=== PATIENT | female | born 1985 | race Caucasian/White ===

== ENCOUNTER 2017-01-29 02:06 | Emergency (ER) | payer OTHER ==
[2017-01-29 02:53] LABS: BASOPHIL % 0.4 % (0-2); PLATELET COUNT 360 x10^3mcL (130-400); RED CELL DISTRIBUTION WIDTH 13.4 % (11.5-14.5)
[2017-01-29 03:03] LABS: CARBON DIOXIDE 25.9 mmol/L (21-32); CHLORIDE SERUM 106 mmol/L (98-107); CREATININE SERUM 0.8 mg/dL (0.6-1.0); GFR1 > 60 mL/min; GLUCOSE SERUM 110 mg/dL (74-106); SODIUM SERUM 141 mmol/L (136-145)
[2017-01-29 03:07] LABS: ALBUMIN 3.6 g/dL (3.4-5.0); ALKALINE PHOSPHATASE 70 U/L (46-116); ALT/SGPT 52 U/L (14-59); AMYLASE 58 U/L (25-115); AST/SGOT 29 U/L (15-37); BILIRUBIN TOTAL 0.19 mg/dL (0.20-1.00); LIPASE 137 IU/L (73-393); TOTAL PROTEIN, SERUM 7.5 g/dL (6.4-8.2)
[2017-01-29 05:24] VITALS: BP 133/62
== END 2017-01-29 05:24 | disposition home or self-care (01) ==
LOC: ED 02:06
PROVIDERS: Emergency Medicine
DX: A08.4 Viral intestinal infection, unspecified (principal); Z87.442 Personal history of urinary calculi; G43.909 Migraine, unspecified, not intractable, without status migrainosus; K80.50 Calculus of bile duct without cholangitis or cholecystitis without obstruction
CPT/HCPCS: 83880; C9113; J2405; J2765; J7030

== ENCOUNTER 2017-04-04 23:05 | Inpatient (IN) | payer OTHER ==
[~2017-04-04] VITALS: Ht 165.1 cm; Wt 116.1 kg
[2017-04-05 00:50] LABS: BASOPHIL % 0.4 % (0-2); PLATELET COUNT 302 x10^3mcL (130-400); RED CELL DISTRIBUTION WIDTH 13.5 % (11.5-14.5)
[2017-04-05 00:57] LABS: microscopic required? YES; urine erythrocyte TRACE (NEGATIVE)
[2017-04-05 01:07] LABS: CALCIUM 8.7 mg/dL (8.5-10.1); CARBON DIOXIDE 26.5 mmol/L (21-32); CHLORIDE SERUM 103 mmol/L (98-107); CREATININE SERUM 0.9 mg/dL (0.6-1.0); GFR1 > 60 mL/min; GLUCOSE SERUM 102 mg/dL (74-106); POTASSIUM SERUM 4.2 mmol/L (3.5-5.1); SODIUM SERUM 139 mmol/L (136-145)
[2017-04-05 01:08] LABS: ALBUMIN 3.5 g/dL (3.4-5.0); ALKALINE PHOSPHATASE 73 U/L (46-116); ALT/SGPT 47 U/L (14-59); AST/SGOT 42 U/L (15-37); BILIRUBIN TOTAL 0.73 mg/dL (0.20-1.00); TOTAL PROTEIN, SERUM 7.8 g/dL (6.4-8.2)
[2017-04-05 01:20] LABS: CK-MB < 0.5 ng/mL (0-3.6); CREATINE KINASE 87 U/L (26-192)
[2017-04-05] MEDS ORDERED: TYLENOL WITH CO1 TA2 PO (03:37)
[2017-04-05] MEDS ORDERED: REGLAN10 M1 PO (03:38)
[2017-04-05] MEDS ORDERED: FLO4 PO (03:38)
[2017-04-05] MEDS ORDERED: CIPRO500 MG PO (03:38)
[2017-04-05 04:27] LABS: AMPHETAMINE QUAL UR NONE DETECTED (NEG <=1000)
[2017-04-05 04:32] LABS: CHOLESTEROL/HDL RATIO 2.9; MAGNESIUM 1.8 mg/dL (1.8-2.4)
[2017-04-05 04:33] LABS: T3 TOTAL 0.83 ng/mL
[2017-04-05 04:34] LABS: FREE T4 0.71 ng/dL (0.76-1.46)
[2017-04-05 04:35] LABS: FREE THYROXINE INDEX 1.5 ug/dL (1.4-4.5)
[2017-04-05 08:16] VITALS: BP 117/61
[2017-04-05 09:35] VITALS: BP 117/61
[2017-04-05 18:55] VITALS: BP 138/75
[2017-04-05 22:09] VITALS: BP 120/54
[2017-04-06 06:57] VITALS: BP 120/70
[2017-04-06 07:00] LABS: BASOPHIL % 0.4 % (0-2); PLATELET COUNT 326 x10^3mcL (130-400); RED CELL DISTRIBUTION WIDTH 13.2 % (11.5-14.5)
[2017-04-06 07:15] LABS: CALCIUM 8.3 mg/dL (8.5-10.1); CARBON DIOXIDE 25.2 mmol/L (21-32); CHLORIDE SERUM 102 mmol/L (98-107); GFR1 > 60 mL/min; GLUCOSE SERUM 103 mg/dL (74-106); POTASSIUM SERUM 4.1 mmol/L (3.5-5.1); SODIUM SERUM 137 mmol/L (136-145)
[2017-04-06 08:15] VITALS: BP 123/60
[2017-04-06 14:21] VITALS: BP 116/70
[2017-04-06 17:15] VITALS: BP 132/81
[2017-04-06 21:50] VITALS: BP 117/61
[2017-04-07 06:05] VITALS: BP 125/72
[2017-04-07 06:22] LABS: BASOPHIL % 0.4 % (0-2); PLATELET COUNT 309 x10^3mcL (130-400); RED CELL DISTRIBUTION WIDTH 13.2 % (11.5-14.5)
[2017-04-07 08:30] VITALS: BP 125/71
[2017-04-07] MEDS ORDERED: CIPRO500 MG PO (09:36)
[2017-04-07] MEDS ORDERED: LAC PO (09:40)
[2017-04-07] MEDS ORDERED: COL100 PO (09:42)
[2017-04-07 11:11] VITALS: BP 125/71
== END 2017-04-07 15:26 | disposition home or self-care (01) | DRG 720 ==
LOC: ED 23:05 → DU 04-05 02:14 → MU 04-07 06:38
PROVIDERS: Emergency Medicine; ADMIT Family Medicine
DX: A41.9 Sepsis, unspecified organism (principal); E43 Unspecified severe protein-calorie malnutrition; Z68.41 Body mass index [BMI] 40.0-44.9, adult; N39.0 Urinary tract infection, site not specified; N20.0 Calculus of kidney; Z87.442 Personal history of urinary calculi; E66.01 Morbid (severe) obesity due to excess calories; R73.03 Prediabetes
CPT/HCPCS: 82962; 83880; 84439; J0696; J1170; J1885; J2270; J2405; J7030; Q0092

== ENCOUNTER 2017-08-21 14:44 | Emergency (ER) | payer OTHER ==
[~2017-08-21] VITALS: Ht 162.6 cm; Wt 117.5 kg
[~2017-08-21 14:44] MED LIST: CIPRO500 MG PO; COL100 PO; FLO4 PO; LAC PO; REGLAN10 M1 PO; TYLENOL WITH CO1 TA2 PO
[2017-08-21 15:31] VITALS: Ht 162.6 cm; Wt 117.5 kg
[2017-08-21 19:00] LABS: UA SPECIFIC GRAVITY 1.015 (1.005-1.035); microscopic required? YES; urine erythrocyte TRACE (NEGATIVE)
[2017-08-21 20:46] VITALS: BP 126/72
== END 2017-08-21 20:46 | disposition home or self-care (01) ==
LOC: ED 14:44
PROVIDERS: Emergency Medicine
DX: N39.0 Urinary tract infection, site not specified (principal)
CPT/HCPCS: J1885; Q0162

== ENCOUNTER 2017-11-15 04:23 | Inpatient (IN) | payer OTHER ==
[~2017-11-15] VITALS: Ht 162.6 cm; Wt 119.0 kg
[2017-11-15 05:11] LABS: BASOPHIL % 0.4 % (0-2); PLATELET COUNT 354 x10^3mcL (130-400); RED CELL DISTRIBUTION WIDTH 13.5 % (11.5-14.5)
[2017-11-15 05:25] LABS: CALCIUM 8.6 mg/dL (8.5-10.1); CARBON DIOXIDE 27.7 mmol/L (21-32); CHLORIDE SERUM 107 mmol/L (98-107); CREATININE SERUM 0.7 mg/dL (0.6-1.0); GFR1 > 60 mL/min; GLUCOSE SERUM 124 mg/dL (74-106); POTASSIUM SERUM 4.4 mmol/L (3.5-5.1); SODIUM SERUM 143 mmol/L (136-145)
[2017-11-15 05:29] LABS: ALBUMIN 3.4 g/dL (3.4-5.0); ALKALINE PHOSPHATASE 58 U/L (46-116); ALT/SGPT 38 U/L (14-59); AST/SGOT 19 U/L (15-37); BILIRUBIN TOTAL 0.23 mg/dL (0.20-1.00); LIPASE 141 IU/L (73-393); TOTAL PROTEIN, SERUM 7.3 g/dL (6.4-8.2)
[2017-11-15 08:01] LABS: CHOLESTEROL/HDL RATIO 3.1; PHOSPHOROUS 3.6 mg/dL (2.5-4.9)
[2017-11-15 08:03] LABS: T3 TOTAL 0.87 ng/mL
[2017-11-15 08:08] LABS: UA SPECIFIC GRAVITY 1.025 (1.005-1.035); microscopic required? YES; urine erythrocyte NEGATIVE (NEGATIVE)
[2017-11-15 08:54] VITALS: BP 113/73
[2017-11-15 10:24] LABS: AMPHETAMINE QUAL UR NONE DETECTED (NEG <=1000)
[2017-11-15 12:20] LABS: FREE T4 0.68 ng/dL (0.76-1.46)
[2017-11-15 12:21] LABS: FREE THYROXINE INDEX 1.2 ug/dL (1.4-4.5); T4(THYROXINE) 3.3 ug/dL (4.7-13.3)
[2017-11-15 17:19] VITALS: BP 117/79
[2017-11-15 22:14] VITALS: BP 117/69
[2017-11-16 06:18] VITALS: BP 110/63
[2017-11-16 06:24] LABS: PLATELET COUNT 347 x10^3mcL (130-400); RED CELL DISTRIBUTION WIDTH 13.6 % (11.5-14.5)
[2017-11-16 06:44] LABS: BASOPHIL % 0 % (0-2)
[2017-11-16 06:45] LABS: CALCIUM 8.4 mg/dL (8.5-10.1); CARBON DIOXIDE 23.6 mmol/L (21-32); CHLORIDE SERUM 104 mmol/L (98-107); CREATININE SERUM 0.7 mg/dL (0.6-1.0); GFR1 > 60 mL/min; GLUCOSE SERUM 130 mg/dL (74-106); MAGNESIUM 1.8 mg/dL (1.8-2.4); PHOSPHOROUS 3.1 mg/dL (2.5-4.9); POTASSIUM SERUM 4.5 mmol/L (3.5-5.1); SODIUM SERUM 138 mmol/L (136-145)
[2017-11-16 08:25] VITALS: BP 118/68
[2017-11-16 16:51] VITALS: BP 114/65
[2017-11-16 21:14] VITALS: BP 120/66
[2017-11-17 04:46] VITALS: BP 119/68
[2017-11-17] MEDS ORDERED: MAC100 PO (06:17)
[2017-11-17] MEDS ORDERED: LAC PO (06:18)
[2017-11-17] MEDS ORDERED: COL100 PO (06:19)
[2017-11-17 06:29] LABS: PLATELET COUNT 305 x10^3mcL (130-400); RED CELL DISTRIBUTION WIDTH 13.6 % (11.5-14.5)
[2017-11-17 06:32] LABS: CALCIUM 8.3 mg/dL (8.5-10.1); CARBON DIOXIDE 26.2 mmol/L (21-32); CHLORIDE SERUM 104 mmol/L (98-107); CREATININE SERUM 0.7 mg/dL (0.6-1.0); GFR1 > 60 mL/min; GLUCOSE SERUM 106 mg/dL (74-106); POTASSIUM SERUM 3.7 mmol/L (3.5-5.1); SODIUM SERUM 137 mmol/L (136-145)
[2017-11-17 07:01] LABS: BASOPHIL % 0 % (0-2)
[2017-11-17 09:05] VITALS: BP 111/61
[2017-11-17] MEDS ORDERED: NORCO1 TA2 PO (10:24)
[2017-11-17] MEDS ORDERED: ZOFRAN ODT4 MG SL (10:53)
[2017-11-17 12:37] VITALS: BP 111/61
[2017-11-17 13:33] VITALS: BP 118/81
[2017-11-17 16:55] VITALS: BP 120/72
== END 2017-11-17 18:28 | disposition home or self-care (01) | DRG 263 ==
LOC: ED 04:23 → DU 06:25 → MU 11-16 06:28
PROVIDERS: Emergency Medicine; Family Medicine; Surgery
PROC: 0FT44ZZ Resection of Gallbladder, Percutaneous Endoscopic Approach (ICD-10-PCS; principal; 2017-11-15 12:00)
DX: K80.62 Calculus of gallbladder and bile duct with acute cholecystitis without obstruction (principal); Z68.41 Body mass index [BMI] 40.0-44.9, adult; N39.0 Urinary tract infection, site not specified; E66.01 Morbid (severe) obesity due to excess calories; E86.0 Dehydration; E03.9 Hypothyroidism, unspecified; D64.9 Anemia, unspecified
CPT/HCPCS: 83880; 84439; J0330; J0500; J0690; J0696; J1644; J1885; J2175; J2250; J2270; J2405; J2704; J2710; J2765; J3010; J3490; J7030; J7120; Q0092; Q0162

== ENCOUNTER 2017-11-19 23:18 | Inpatient (IN) | payer OTHER ==
[~2017-11-19] VITALS: Ht 162.6 cm; Wt 118.8 kg
[~2017-11-19 23:18] MED LIST changes: +MAC100 PO; +NORCO1 TA2 PO; +ZOFRAN ODT4 MG SL
[2017-11-19 23:39] VITALS: Ht 162.6 cm; Wt 118.8 kg
[2017-11-20 00:50] LABS: BASOPHIL % 0.8 % (0-2); RED CELL DISTRIBUTION WIDTH 13.6 % (11.5-14.5)
[2017-11-20 00:55] LABS: PLATELET COUNT 409 x10^3mcL (130-400)
[2017-11-20 00:59] LABS: CALCIUM 9.2 mg/dL (8.5-10.1); CARBON DIOXIDE 32.8 mmol/L (21-32); CHLORIDE SERUM 101 mmol/L (98-107); GFR1 > 60 mL/min; GLUCOSE SERUM 103 mg/dL (74-106); SODIUM SERUM 135 mmol/L (136-145)
[2017-11-20 01:02] LABS: ALBUMIN 3.4 g/dL (3.4-5.0); ALKALINE PHOSPHATASE 79 U/L (46-116); ALT/SGPT 127 U/L (14-59); AMYLASE 44 U/L (25-115); AST/SGOT 51 U/L (15-37); BILIRUBIN TOTAL 0.4 mg/dL (0.20-1.00); LIPASE 83 IU/L (73-393); TOTAL PROTEIN, SERUM 7.7 g/dL (6.4-8.2)
[2017-11-20] MEDS ORDERED: IBUPROFEN400 MG PO (03:20)
[2017-11-20 04:54] VITALS: BP 125/64
[2017-11-20 06:38] LABS: T3 TOTAL 0.92 ng/mL
[2017-11-20 06:39] LABS: CHOLESTEROL/HDL RATIO 3.2; PHOSPHOROUS 4.5 mg/dL (2.5-4.9)
[2017-11-20 06:49] LABS: FREE T4 0.99 ng/dL (0.76-1.46); FREE THYROXINE INDEX 2.6 ug/dL (1.4-4.5); T4(THYROXINE) 6.9 ug/dL (4.7-13.3)
[2017-11-20 09:32] VITALS: BP 148/81
[2017-11-20 12:28] LABS: microscopic required? NO
[2017-11-20 13:06] LABS: urine erythrocyte NEGATIVE (NEGATIVE)
[2017-11-20 13:52] VITALS: BP 118/70
[2017-11-20 14:00] LABS: AMPHETAMINE QUAL UR NONE DETECTED (NEG <=1000)
[2017-11-20 17:55] VITALS: BP 116/66
[2017-11-20 21:09] VITALS: BP 110/57
[2017-11-21 06:05] VITALS: BP 117/62
[2017-11-21 06:44] LABS: CALCIUM 8.7 mg/dL (8.5-10.1); CARBON DIOXIDE 27.6 mmol/L (21-32); CHLORIDE SERUM 102 mmol/L (98-107); CREATININE SERUM 0.8 mg/dL (0.6-1.0); GFR1 > 60 mL/min; GLUCOSE SERUM 93 mg/dL (74-106); POTASSIUM SERUM 4.1 mmol/L (3.5-5.1); SODIUM SERUM 135 mmol/L (136-145)
[2017-11-21 06:49] LABS: BASOPHIL % 0.4 % (0-2); PLATELET COUNT 386 x10^3mcL (130-400); RED CELL DISTRIBUTION WIDTH 13.6 % (11.5-14.5)
[2017-11-21] MEDS ORDERED: AUG500 PO (09:49)
[2017-11-21] MEDS ORDERED: BD LACTINEX1.4 MG PO (09:50)
[2017-11-21 12:35] VITALS: BP 117/62
== END 2017-11-21 14:10 | disposition home or self-care (01) | DRG 861 ==
LOC: ED 23:18 → DU 11-20 04:06 → MU 11-21 10:06
PROVIDERS: Emergency Medicine; Family Medicine
DX: G89.18 Other acute postprocedural pain (principal); Z68.41 Body mass index [BMI] 40.0-44.9, adult; E66.01 Morbid (severe) obesity due to excess calories; G43.909 Migraine, unspecified, not intractable, without status migrainosus; Z90.49 Acquired absence of other specified parts of digestive tract
CPT/HCPCS: 83880; 84439; J1644; J2270; J2543; J7030; Q0092; Q9967

== ENCOUNTER 2017-12-11 22:12 | Emergency (ER) | payer OTHER ==
[~2017-12-11 22:12] MED LIST changes: +AUG500 PO; +BD LACTINEX1.4 MG PO; +IBUPROFEN400 MG PO
[2017-12-12 02:13] VITALS: BP 129/82
== END 2017-12-12 02:13 | disposition home or self-care (01) ==
LOC: ED 22:12
DX: N39.0 Urinary tract infection, site not specified (principal)
CPT/HCPCS: J1885; Q0162

== ENCOUNTER 2017-12-12 06:54 | Emergency (ER) | payer OTHER ==
[2017-12-12 07:29] LABS: CALCIUM 9.3 mg/dL (8.5-10.1); CARBON DIOXIDE 28.4 mmol/L (21-32); CHLORIDE SERUM 102 mmol/L (98-107); GFR1 > 60 mL/min; GLUCOSE SERUM 119 mg/dL (74-106); POTASSIUM SERUM 3.5 mmol/L (3.5-5.1); SODIUM SERUM 140 mmol/L (136-145)
[2017-12-12 07:33] LABS: ALBUMIN 3.9 g/dL (3.4-5.0); ALKALINE PHOSPHATASE 72 U/L (46-116); ALT/SGPT 42 U/L (14-59); AST/SGOT 23 U/L (15-37); BILIRUBIN TOTAL 0.32 mg/dL (0.20-1.00); LIPASE 150 IU/L (73-393)
[2017-12-12 07:37] LABS: BASOPHIL % 0.4 % (0-2); RED CELL DISTRIBUTION WIDTH 13.6 % (11.5-14.5)
[2017-12-12 07:38] LABS: PLATELET COUNT 436 x10^3mcL (130-400)
[2017-12-12 11:41] VITALS: BP 128/64
== END 2017-12-12 11:41 | disposition home or self-care (01) ==
LOC: ED 06:54
PROVIDERS: Emergency Medicine
DX: N20.0 Calculus of kidney (principal); R30.0 Dysuria; Z90.49 Acquired absence of other specified parts of digestive tract; Z90.89 Acquired absence of other organs
CPT/HCPCS: J2270; J2405; J3010; J7030; Q0092

== ENCOUNTER 2018-12-07 21:57 | Emergency (ER) | payer OTHER ==
[~2018-12-07] VITALS: Ht 162.6 cm; Wt 116.6 kg
[2018-12-07 21:59] VITALS: Ht 162.6 cm; Wt 116.6 kg
[2018-12-07 23:09] VITALS: BP 122/76
== END 2018-12-07 23:09 | disposition home or self-care (01) ==
LOC: ED 21:57
DX: N39.0 Urinary tract infection, site not specified (principal); Z87.442 Personal history of urinary calculi; Z90.49 Acquired absence of other specified parts of digestive tract
CPT/HCPCS: J1885